=== PATIENT | female | born 1960 | race Caucasian/White ===

== ENCOUNTER → 2020-03-18 | Day surgery (SDC) | payer BC ==
--- NOTE | 2020-03-21 11:06 | PATH ---
Surgical Pathology Report Patient Name: JAISON TRISTAN [facility]. Rec. #: [id number] /Age/Gender: 1960 (Age: 59) / F Account: [id number] Location: [facility] MR Taken: 03/18/2020 Received: 03/18/2020 Reported: 03/21/2020 Physicians: Giovani Chaudhry M.D. Specimen(s) Received A: LEFT BREAST LESION 1 B: RIGHT BREAST LESION 2 Clinical History Newly diagnosed right breast cancer Final Diagnosis A. BREAST LESION #1, LEFT, MRI GUIDED CORE BIOPSY: BENIGN BREAST PARENCHYMA WITH FOCUS OF FAT NECROSIS, CHRONIC INFLAMMATORY AND HISTIOCYTIC INFILTRATE, AND SURROUNDING FIBROSIS. B. BREAST LESION #2, RIGHT, MRI GUIDED CORE BIOPSY: INVASIVE DUCTAL CARCINOMA, POORLY DIFFERENTIATED, WITH PROMINENT ASSOCIATED LYMPHOCYTIC INFILTRATE. TUMOR MEASURES AT LEAST 3.5 MM IN THIS MATERIAL. Results of (Estrogen Receptor) ER and (Progesterone Receptor) PgR studies performed at [facility] are as follows: ER (clone [id number] mouse monoclonal antibody by [employer]): _X_ Positive (greater than 10% of cells demonstrate nuclear positivity) ~15% PgR (clone16 mouse monoclonal antibody by Le[employer]): _X_ Negative Comment: Part B, Immunohistochemical stains performed and interpreted at [facility] show myoepithelial markers (p63 and SMM-HC) are negative in areas of invasive carcinoma. HER2/Ki-67 pending, findings will be reported separately. Case discussed with Dr. Smith, 03/21/20. Positive and negative controls (internal if applicable) show appropriate results. Formalin fixation and cold ischemic times are within current ASCO/CAP recommendations for ER, VA and Her2 testing. Electronically Signed Lakeshia Banks M.D. Addendum Reported: 03/22/2020 Addendum Diagnosis Results of Her2 (IHC) & Ki-67 studies performed on block "B2 " at [place], [place] ([id number]) are as follows: Her2 IHC (EP3 from [employer], formerly known as [id number], using Dang Polymer Refine detection kit): 3+ (Positive). Ki-67: ~20% (Intermediate proliferative index). Positive and negative controls (internal if applicable) show appropriate results. Lakeshia Banks M.D. Gross Description A. Received in formalin labeled "left breast lesion 1," is a 3.8 x 2.5 x 0.3 cm aggregate of gotti-yellow, irregular to cylindrical portions of fibroadipose tissue. The formalin is filtered and the specimen is entirely submitted in one cassette. B. Received in formalin labeled "right breast lesion 2," is a 4.5 x 2.5 x 0.3 cm aggregate of multiple gotit-yellow, irregular to cylindrical portions of fibroadipose tissue. The formalin is filtered and the specimen is entirely submitted in 2 cassettes. Time to formalin fixation: 2 minutes Total formalin fixation time: Approximately 6 hours. 03/18/2020 saudi03/18/2020
== END | disposition home or self-care (01) ==
LOC: FRADUS-SUR 09:47
PROVIDERS: ATTEND Surgery Surgical Oncology
PROC: 0HBV3ZX Excision of Bilateral Breast, Percutaneous Approach, Diagnostic (ICD-10-PCS; principal; 2020-03-18)
DX: C50.411 Malignant neoplasm of upper-outer quadrant of right female breast (principal); Z17.0 Estrogen receptor positive status [ER+]; N64.1 Fat necrosis of breast; N63.25 Unspecified lump in the left breast, overlapping quadrants; N63.11 Unspecified lump in the right breast, upper outer quadrant
CPT/HCPCS: 19085; 19086; 77066-TC; 88305-TC; 88341-TC; 88342-TC; A4648; A9579; C1887

== ENCOUNTER 2020-04-09 10:31 | Day surgery (SDC) | payer BC ==
--- NOTE | 2020-04-03 15:52 | HP ---
Admitting History and Physical - Primary Care Physician PCP: Wesley Vargas - Admission Chief Complaint: Right breast cancer History of Present Illness: 59 year old postmenapausal [place]kenazi [employer] heritage female with mammogram showing calcifications and questionable density right upper outer aspect,. US showed 1x.5x.8cm irregular density right breast 10:00 14 cm FN. 03/04/2020 US core bx showed infiltrating ductal carcinoma ER-Genetic test negative. Mitaro RPAC /MS -HER2+. Breast MRI showd right breast 10:00 cancer 1 cm. MRI also showed left breast density for which she had a benign bx and also had clip placement in right breast upper outer quadrant because the clip never deployed on initial bx. The right bx was rebxed during the clip placement which showed invasive ductal carcinoma Er weakly + and HER2+. Genetic test was negative for mutation. History Source: Patient Limitations to Obtaining History: No Limitations - Past Medical History Cardiovascular: Yes: Hyperlipdemia - Smoking History Smoking history: Never smoked Have you smoked in the past 12 months: No - Alcohol/Substance Use Hx Alcohol Use: No Home Medications - Allergies Allergies/Adverse Reactions: Allergies Allergy/AdvReac Type Severity Reaction Status Date / Time codeine Allergy Verified 03/12/20 15:15 Sulfa (Sulfonamide Allergy Verified 03/12/20 15:15 Antibiotics) - Home Medications Home Medications (free text): crestor Family Medical History Family Hx Cancer: Mother (lung ca) Physical Examination Constitutional: Yes: Well Nourished Breast(s): Yes: Other (D cup sized breasts some bruising towards upper outer aspect right breast no palpable masses or adenopathy. left breast post bx changes) Problem List - Problems (1) Breast cancer, right breast Problems reviewed: Yes Code(s): C50.911 - MALIGNANT NEOPLASM OF UNSP SITE OF RIGHT FEMALE BREAST Qualifiers: Breast location: upper outer quadrant of breast Estrogen receptor status: positive Patient sex: female Qualified Code(s): C50.411 - Malignant neoplasm of upper-outer quadrant of right female breast; Z17.0 - Estrogen receptor positive status [ER+] Assessment/Plan Right breast wide excision with mag seed/mammogram needle loc, sentenel node biopsy ,lymphoscintogram, possible axillary node dissection
[2020-04-09 11:20] VITALS: BMI 30.7
[2020-04-09] MEDS ORDERED: KETOROLAC TROMETHAMINE 30 MG/1 ML VIAL IVPUSH PRN (12:13)
[2020-04-09] MEDS ORDERED: ONDANSETRON 4 MG/2 ML VIAL IVPUSH PRN ×2 (12:13→14:25)
[2020-04-09] MEDS ORDERED: DEXTROSE 5%-0.45% SALINE 1,000 ML IV SCH (12:15)
[2020-04-09] MEDS ORDERED: BUPIVACAINE HCL/PF 0.25% (2.5MG/ML) 10 ML VIAL ONE (12:50)
[2020-04-09] MEDS ORDERED: ISOSULFAN BLUE 10 MG/ML VIAL SQ ONE ×2 (12:50→15:22)
[2020-04-09] MEDS ORDERED: GUM MASTIC/STORAX/MSAL/ALCOHOL 1 DRP DROPSBTL MC ONE (12:58)
[2020-04-09] MEDS ORDERED: PROPOFOL 20 ML ONE ×3 (13:05→15:41)
[2020-04-09] MEDS ORDERED: MIDAZOLAM HCL 2 MG/2 ML SINGLE DOSE VIAL ONE ×2 (13:05→15:07)
[2020-04-09] MEDS ORDERED: LIDOCAINE HCL 1%, 10 MG/ML (20ML VIAL) ONE (14:13)
[2020-04-09] MEDS ORDERED: PROMETHAZINE HCL 25 MG/1 ML VIAL IVPUSH PRN (14:25)
[2020-04-09] MEDS ORDERED: oxyCODONE HCL 5 MG TABLET PO PRN (14:25)
[2020-04-09] MEDS ORDERED: LACTATED RINGERS SOLUTION 1,000 ML IV SCH (14:30)
[2020-04-09] MEDS ORDERED: LIDOCAINE HCL/PF 2% SDV 5ML VIAL ONE (15:08)
[2020-04-09] MEDS ORDERED: SODIUM CHLORIDE 0.9% P/F 10 ML VIAL IJ ONE (15:25)
[2020-04-09] MEDS ORDERED: ceFAZolin SODIUM 1 GM VIAL ONE (15:25)
[2020-04-09] MEDS ORDERED: ceFAZolin SODIUM 1 GM VIAL IVPB ONE (15:26)
[2020-04-09] MEDS ORDERED: DEXAMETHASONE SOD PHOSPHATE 4 MG/1 ML VIAL ONE (15:29)
[2020-04-09] MEDS ORDERED: SUCCINYLCHOLINE CHLORIDE 200 MG/10 ML SYRINGE ONE (15:42)
[2020-04-09] MEDS ORDERED: BUPIVACAINE HCL/PF 0.5% (5 MG/ML) 30 ML VIAL IJ ONE ×2 (15:48→16:59)
[2020-04-09] MEDS ORDERED: LIDOCAINE HCL 1%, 10 MG/ML (20ML VIAL) NR ONE ×2 (15:48→16:59)
[2020-04-09] MEDS ORDERED: KETOROLAC TROMETHAMINE 30 MG/1 ML VIAL ONE (17:02)
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
[2020-04-09 19:07] VITALS: BP 126/74; PULSE 75; TEMP 96.4
--- NOTE | 2020-04-12 15:38 | PATH ---
Surgical Pathology Report Patient Name: JAISON TRISTAN [facility]. Rec. #: [id number] /Age/Gender: 1960 (Age: 59) / F Account: [id number] Location: AMBULATORY SURG Taken: 04/09/2020 Received: 04/10/2020 Reported: 04/12/2020 Physicians: Wesley Vargas M.D. Specimen(s) Received A: RIGHT AXILLARY CENTRAL LYMPH NODE #1 B: RIGHT AXILLARY CENTRAL LYMPH NODE #2 C: RIGHT AXILLARY CENTRAL LYMPH NODE #3 D: RIGHT BREAST SUPERIOR MARGIN E: RIGHT BREAST MEDIAL MARGIN F: RIGHT BREAST INFERIOR MARGIN G: RIGHT BREAST LATERAL MARGIN H: RIGHT BREAST DEEP MARGIN I: RIGHT BREAST ANTERIOR MARGIN J: RIGHT BREAST PARTIAL MASTECTOMY Clinical History Right breast cancer upper outer quadrant Final Diagnosis A. RIGHT AXILLARY CENTRAL LYMPH NODE #1, 4372, EXCISION: ONE LYMPH NODE, NEGATIVE FOR METASTATIC CARCINOMA (0/1). B. RIGHT AXILLARY CENTRAL LYMPH NODE #2, 4720, EXCISION: ONE LYMPH NODE, NEGATIVE FOR METASTATIC CARCINOMA (0/1). C. RIGHT AXILLARY CENTRAL LYMPH NODE #3, 3751, EXCISION: ONE LYMPH NODE, NEGATIVE FOR METASTATIC CARCINOMA (0/1). D. RIGHT BREAST SUPERIOR MARGIN, EXCISION: BENIGN FIBROADIPOSE TISSUE. E. RIGHT BREAST MEDIAL MARGIN, EXCISION: BENIGN BREAST TISSUE. F. RIGHT BREAST INFERIOR MARGIN, EXCISION: BENIGN BREAST TISSUE. G. RIGHT BREAST LATERAL MARGIN, EXCISION: BENIGN FIBROADIPOSE TISSUE. H. RIGHT BREAST DEEP MARGIN, EXCISION: BENIGN SKELETAL AND FIBROADIPOSE TISSUE. I. RIGHT BREAST ANTERIOR MARGIN, EXCISION: BREAST TISSUE WITH DUCTAL CARCINOMA IN SITU (DCIS), HIGH NUCLEAR GRADE. DCIS IS AT 2 MM FROM THE FINAL MARGIN. FINAL MARGIN IS NEGATIVE FOR CARCINOMA. Comment: Immunohistochemical stains (block I2 and I3) performed and interpreted at [facility] show the following results: smooth muscle myosin heavy chain and p63 highlight the intact myoepithelial cell layer in the areas of DCIS. Positive and negative controls (internal if applicable) show appropriate results. J. RIGHT BREAST PARTIAL MASTECTOMY: INVASIVE DUCTAL CARCINOMA, POORLY DIFFERENTIATED (TUBULE SCORE 3/3, NUCLEAR GRADE: 3/3, MITOTIC SCORE: 3/3, TOTAL SCORE 9/9, TODD GRADE 3), WITH PROMINENT ASSOCIATED LYMPHOCYTIC INFILTRATE, MEASURING 0.9 CM IN GREATEST DIMENSION, MICROSCOPICALLY. DUCTAL CARCINOMA IN SITU (DCIS) PRESENT, HIGH NUCLEAR GRADE, SOLID PATTERN, WITH CENTRAL NECROSIS AND MICROCALCIFICATIONS. SURGICAL MARGINS ARE UNINVOLVED BY CARCINOMA. INVASIVE CARCINOMA IS AT 2 MM FROM THE CLOSEST (DEEP) MARGIN. DCIS IS AT LESS THAN 1 MM FROM THE CLOSEST (DEEP) MARGIN. ALSO SEE SPECIMENS D TO I FOR FINAL MARGINS. NO LYMPHOVASCULAR INVASION IS IDENTIFIED. PRIOR BIOPSY SITE WITH REACTIVE CHANGES. PATHOLOGIC STAGE (pTNM): pT1b, pN0 SEE ALSO INVASIVE CARCINOMA CASE SUMMARY BELOW. Comment: Immunohistochemical stains (block J1) performed and interpreted at [facility] show the following results: smooth muscle myosin heavy chain and p63 show loss of the myoepithelial cell layer in the areas of invasive carcinoma. E-Cadherin shows diffuse membranous staining in the tumor cells, supports a ductal phenotype. Positive and negative controls (internal if applicable) show appropriate results. Comments Breast Invasive Carcinoma: Surgical Pathology Case Summary (Based on AJCC TNM 8 th edition) Procedure _x_ Excision (less than total mastectomy) Specimen Laterality _x_ Right Tumor Size _x_ Greatest dimension of largest invasive focus >1 mm (millimeters): 9mm Histologic Type _x_ Invasive carcinoma of no special type, NOS (ductal) Histologic Grade ([place] Histologic Score) Glandular (Acinar)/Tubular Differentiation _x_ Score 3 (<10% of tumor area forming glandular/tubular structures) Nuclear Pleomorphism _x_ Score 3 Mitotic Rate _x_ Score 3 Overall Grade _x_ Grade 3 (scores of 8 or 9) Tumor Focality _x_ Single focus of invasive carcinoma Ductal Carcinoma In Situ (DCIS) _x_ DCIS is present in specimen _x_ Positive for extensive intraductal component (EIC) Margins Invasive Carcinoma Margins _x_ Uninvolved by invasive carcinoma Distance from closest margin (millimeters): > 2 mm Closest margin: Deep margin. Invasive carcinoma is at 2mm from the deep margin in the partial mastectomy (specimen J). Additional deep margin (specimen H) is negative for carcinoma. DCIS Margins _x_ Uninvolved by DCIS Distance from closest margin (millimeters): 2mm Closest margin: Anterior margin (specimen I). Note: DCIS is at less than 1 mm from the deep margin in the partial mastectomy (specimen J). Additional deep margin (specimen H) is negative for carcinoma. Regional Lymph Nodes _x__ Uninvolved by tumor cells Number of Lymph Nodes Examined: 3 Number of Orla Nodes Examined: 0 Treatment Effect in the Breast _x_ No known presurgical therapy Lymphovascular Invasion _x_ Not identified Pathologic Stage Classification (pTNM, AJCC 8th Edition) Primary Tumor (Invasive Carcinoma) (pT) _x_ pT1b: Tumor >5 mm but =10 mm in greatest dimension Category (pN) _x_ pN0: No regional lymph node metastasis identified or ITCs only Biomarker Studies Results of ER and MD studies performed on this specimen (block# J1) at [facility] are as follows: ER (clone [id number] mouse monoclonal antibody by [employer]): _x_ Negative PgR (clone16 mouse monoclonal antibody by [employer]): _x_ Negative Results of Her2 (IHC) & Ki-67 studies performed on this specimen (block# J1) at [place], [place] ([id number]) are as follows: Her2 IHC (EP3 from [employer], formerly known as [id number], using Dang Polymer Refine detection kit): 3+ (Positive) Ki67:~35% (high proliferative index) Positive and negative controls (internal if applicable) show appropriate results. Formalin fixation and cold ischemic times are within current ASCO/CAP recommendations for ER, PgR and Her2 testing. Electronically Signed Randy Issa M.D. Gross Description A. Received in formalin labeled "axillary central lymph node #1," is a 1.8 x 1.2 x 0.6 cm gotti, irregular lymph node with attached fat. The specimen is bisected and entirely submitted in 2 cassettes. B. Received in formalin labeled "right axillary central lymph node #2," is a 1.7 x 0.7 x 0.6 cm gotti lymph node. The specimen is bisected and entirely submitted in one cassette. C. Received in formalin labeled "right axillary central lymph node #3," is a 1.0 x 0.7 x 0.3 cm gotti lymph node. The specimen is submitted in toto in one cassette. D. Received in formalin labeled "right breast superior margin," is a 2.8 x 2.4 x 0.7 cm portion of fibroadipose tissue with a suture marking the biopsy cavity side. The new margin is inked blue and the specimen is serially sectioned. The specimen is entirely submitted in 3 cassettes. E. Received in formalin labeled "right breast medial margin," is a 2.9 x 2.4 x 1.0 cm portion of fibroadipose tissue with a suture marking the biopsy cavity side. The new margin is inked blue and the specimen is serially sectioned. The specimen is entirely and sequentially submitted in 4 cassettes. F. Received in formalin labeled "right breast inferior margin," is a 2.5 x 2.4 x 0.8 cm portion of fibroadipose tissue with a suture marking the biopsy cavity side. The new margin is inked blue and the specimen is serially sectioned. The specimen is entirely submitted in 3 cassettes. G. Received in formalin labeled "right breast lateral margin," is a 2.8 x 2.3 x 1.2 cm portion of fibroadipose tissue with a suture marking the biopsy cavity side. The new margin is inked blue and the specimen is serially sectioned. The specimen is entirely submitted in 3 cassettes. H. Received in formalin labeled "right breast deep margin," is a 2.3 x 1.3 x 0.7 cm portion of fibroadipose tissue with a suture marking the biopsy cavity side. The new margin is inked blue and the specimen is serially sectioned. The specimen is entirely submitted in 2 cassettes. I. Received in formalin labeled "right breast anterior margin," invade 2.7 x 1.8 x 1.0 cm portion of fibroadipose tissue with a suture presumably marking the biopsy cavity side. The presumed new margin is inked blue and the specimen is serially sectioned. The specimen is entirely submitted in 3 cassettes. J. Received fresh on an AccuGrid, labeled "right breast partial mastectomy," is an 8.0 x 6.7 x 3.7 cm. gotti-yellow, irregular, portion of fibroadipose tissue. There is no needle localization wire present. There is a short suture marking the superior aspect and a long suture marking the lateral aspect, per the surgeon. There is no skin or nipple present. The specimen is inked as follows: superior and lateral blue; inferior green; medial yellow; anterior red; deep black. The specimen is serially sectioned from superior to inferior. Sectioning reveals a 1.7 x 1.5 x 1.0 cm indurated focus of fibrous tissue associated with a hemorrhagic previous biopsy site. The focus abuts the anterior margin and is 0.6 cm from the deep margin. Rubber Down sections are submitted in 8 cassettes as follows: 1-full face section of mass with anterior and deep margins; 9-4-unlvpleemv mass with anterior and deep margins; 4-fibrous tissue surrounding mass with anterior and deep margins; 5-lateral margin; 6-medial margin; 7-inferior margin; 8-superior margin. Note: For additional margins specimen D to specimen I, the suture is marked at "cavity biopsy side", confirmed by DARYL Lester, from Dr. Vargas's office per telephone conversation on 04/12/2020. Total formalin fixation time: Approximately 26 hours 04/10/2020 [facility]04/10/2020
== END 2020-04-09 19:15 | disposition home or self-care (01) ==
LOC: FASU 10:31 → JASUSAT 10:31
PROVIDERS: ATTEND Surgery Surgical Oncology
PROC: 0HBT0ZZ Excision of Right Breast, Open Approach (ICD-10-PCS; principal; 2020-04-09 13:00)
DX: C50.411 Malignant neoplasm of upper-outer quadrant of right female breast (principal); Z17.0 Estrogen receptor positive status [ER+]
CPT/HCPCS: 19281; 76098-TC-FY; 78195-TC; 88307-TC; 88341-TC; 88342-TC; 94760; A9541